=== PATIENT | female | born 1950 | race Caucasian/White ===

== ENCOUNTER → 2024-02-27 08:51 | Outpatient (REF) | payer MEDICARE, OTHER, SELFPAY ==
[2024-02-27 09:55] LABS: Blood Urea Nitrogen 24 mg/dl (7-17); Carbon Dioxide 29 mmol/L (22-30); Chloride 93 mmol/L (98-107); Glucose 133 mg/dl (70-99); Potassium 4.5 mmol/L (3.5-5.1); Sodium 129 mmol/L (135-145); Uric Acid 5.9 mg/dl (2.5-6.2); eGFR 58.75
[2024-02-27 12:56] LABS: Glycohemoglobin (HgbA1c) 6.7 % (4.0-5.6)
== END ==
LOC: REG 08:51
PROVIDERS: ATTENDING PHYSICIAN Internal Medicine
DX: E11.9 Type 2 diabetes mellitus without complications (principal); I10 Essential (primary) hypertension; M1A.0490 Idiopathic chronic gout, unspecified hand, without tophus (tophi)
CPT/HCPCS: 36415; 80048; 83036; 84550

== ENCOUNTER → 2024-09-02 09:06 | Outpatient (REF) | payer MEDICARE, OTHER, SELFPAY ==
[2024-09-02 10:04] LABS: % Basophils 0.2 % (0-2); % Eosinophils 1.8 % (0-6); % Immature Granulocytes 0.4 % (0-0.5); % Lymphocytes 21.3 % (20.5-51.1); % Neutrophils 69.3 % (42.2-75.2); Absolute Eosinophils 0.2 10^3/uL (0-0.7); Absolute Lymphocytes 1.8 10^3/uL (1.2-3.4); Absolute Monocytes 0.6 10^3/uL (0.1-0.6); Absolute Neutrophils 5.8 10^3/uL (1.4-6.5); Hematocrit 38.2 % (37.0-47.0); Hemoglobin 12.9 g/dL (12.0-16.0); Mean Corp Hgb Conc. 33.8 g/dL (33.0-37.0); Mean Corpuscular Hgb 29.3 pg (27.0-31.0); Mean Corpuscular Volume 86.8 fL (81.0-99.0); Mean Platelet Volume 9.5 fL (7.4-10.4); Nucleated Red Blood Cells % 0 %; Platelet Count 268 10^3/uL (130-400); Red Cell Dist. Width 14.6 % (11.5-14.5); White Blood Cell Count 8.3 10^3/uL (4.8-10.8)
[2024-09-02 10:56] LABS: ALT (SGPT) 12 U/L (0-35); AST (SGOT) 19 U/L (14-36); Albumin 4.7 g/dl (3.5-5.0); Alkaline Phosphatase 48 U/L (38-126); Blood Urea Nitrogen 21 mg/dl (7-17); Calcium 10.1 mg/dl (8.4-10.2); Carbon Dioxide 25 mmol/L (22-30); Chloride 94 mmol/L (98-107); Glucose 117 mg/dl (70-99); HDL Cholesterol 35 mg/dl; LDL Cholesterol, Calculated 82 mg/dl; Potassium 4.7 mmol/L (3.5-5.1); Sodium 135 mmol/L (135-145); Total Bilirubin 0.6 mg/dl (0.2-1.3); Total Cholesterol 147 mg/dl (50-199); Total Protein 7.8 g/dl (6.3-8.2); Triglyceride 153 mg/dl (10-149); Very Low Density Lipoprotein 30 mg/dl (0-30); eGFR 58.39
[2024-09-02 11:05] LABS: Microalbumin, Random Urine 0.8 mg/dl (0.6-1.7)
[2024-09-02 11:13] LABS: TSH 2.95 uIU/ml (0.47-4.68)
[2024-09-03 12:01] LABS: Glycohemoglobin (HgbA1c) 6.2 % (4.0-5.6)
== END ==
LOC: REG 09:06
PROVIDERS: ATTENDING PHYSICIAN Internal Medicine
DX: E11.9 Type 2 diabetes mellitus without complications (principal); E03.9 Hypothyroidism, unspecified; E78.5 Hyperlipidemia, unspecified
CPT/HCPCS: 36415; 80053; 80061; 82043; 83036; 84443; 85025

== ENCOUNTER 2024-10-29 17:28 | Emergency (ER) | payer MEDICARE, OTHER, SELFPAY ==
[2024-10-29 17:29] VITALS: BMI 42.0
[2024-10-29 17:30] VITALS: BP 177/100
--- NOTE | 2024-10-29 17:40 | ED.GENMED ---
History of Present Illness
General
Chief Complaint: Fall
Time Seen by Provider: 10/29/24 17:39
Review of Systems
Review of Systems
All Other Systems: ROS reviewed and negative except as documented in HPI and ROS
Course
Orders/Labs/Results
Orders:
Orders
10/29/24 17:37
Complete Blood Count/With Diff Urgent
Comprehensive Metabolic Panel Urgent
Vital Signs
Initial and Last Documented VS:
Initial Vital Signs
Temp Pulse Resp BP Pulse Ox
98.9 F 82 18 177/100 98
10/29/24 17:30 10/29/24 17:30 10/29/24 17:30 10/29/24 17:30 10/29/24 17:30
Last Documented Vital Signs
Temp Pulse Resp BP Pulse Ox
98.9 F 82 18 177/100 98
10/29/24 17:30 10/29/24 17:30 10/29/24 17:30 10/29/24 17:30 10/29/24 17:30
ED Attending Note
-
Portions of this chart may have been created with voice recognition software.� Occasional wrong word or��sound alike� substitutions may have occurred due to the inherent limitations of voice recognition software.
Discharge Plan
Departure
Prescriptions:
No Action
atorvastatin 20 MG tablet
20 mg PO QPM
rivaroxaban [Xarelto] 20 MG tablet
20 mg PO QPM Qty: 30 11RF
sotalol 80 MG tablet
80 mg PO BID Qty: 60 11RF
ranitidine HCl [Zantac] 150 MG tablet
150 mg PO DAILY PRN (Reason: indigestion)
losartan 50 MG tablet
50 mg PO DAILY
cyanocobalamin (vitamin B-12) 1,000 MCG tablet
1,000 mcg PO DAILY
guar gum 1 PKT packet
1 pkt PO DAILY PRN (Reason: as needed)
oxymetazoline [Afrin Sinus (oxymetazoline)] 30 SPRAYS/15 ML spray,non-aerosol
1 sprays intranasal HS
olopatadine [Pataday] 2.5 ML drops
2.5 ml OP DAILY PRN (Reason: burning of eyes)
levothyroxine 100 MCG tablet
100 mcg PO DAILY AT 0700
metformin 1,000 MG tablet
1,000 mg PO BID
ranitidine HCl [Zantac] 150 MG tablet
75 - 150 mg PO QPM PRN (Reason: indigestion)
Interventions
Interventions:
*Risk Screen - Suicide Last Done: 10/29/24 17:30
*General Assessment Last Done: 10/29/24 17:30
*Neglect/Abuse Screening Last Done: 10/29/24 17:30
ED- Fall Risk Assessment Last Done: 10/29/24 17:30
*ED COVID-19 Vaccine History Last Done: 10/29/24 17:30
ED- Neurological Assessment Last Done: 10/29/24 17:39
Discharge Date and Time
Print Language: SRI LANKAN
[2024-10-29] MEDS: ZOFRAN 4 MG IV (17:50)
[2024-10-29] MEDS: MORPHINE SULFATE 4 MG IV (17:50)
[2024-10-29 17:51] LABS: % Basophils 0.2 % (0-2); % Eosinophils 1.6 % (0-6); % Immature Granulocytes 0.5 % (0-0.5); % Lymphocytes 20.8 % (20.5-51.1); % Monocytes 6.7 % (1.7-9.3); % Neutrophils 70.2 % (42.2-75.2); Absolute Eosinophils 0.2 10^3/uL (0-0.7); Absolute Immature Granulocytes 0.1 10^3/uL (0-0.05); Absolute Lymphocytes 2.7 10^3/uL (1.2-3.4); Absolute Monocytes 0.9 10^3/uL (0.1-0.6); Absolute Neutrophils 9.2 10^3/uL (1.4-6.5); Hematocrit 38.9 % (37.0-47.0); Hemoglobin 13.1 g/dL (12.0-16.0); Mean Corp Hgb Conc. 33.7 g/dL (33.0-37.0); Mean Corpuscular Hgb 28.6 pg (27.0-31.0); Mean Corpuscular Volume 84.9 fL (81.0-99.0); Mean Platelet Volume 9.9 fL (7.4-10.4); Nucleated Red Blood Cells % 0 %; Platelet Count 257 10^3/uL (130-400); Red Blood Cell Count 4.58 10^6/uL (4.20-5.40); Red Cell Dist. Width 14.4 % (11.5-14.5); White Blood Cell Count 13.1 10^3/uL (4.8-10.8)
[2024-10-29 18:03] LABS: ALT (SGPT) 16 U/L (0-35); AST (SGOT) 24 U/L (14-36); Albumin 4.6 g/dl (3.5-5.0); Alkaline Phosphatase 71 U/L (38-126); Blood Urea Nitrogen 19 mg/dl (7-17); Calcium 9.5 mg/dl (8.4-10.2); Carbon Dioxide 22 mmol/L (22-30); Chloride 96 mmol/L (98-107); Estimated Creatinine Clearance 69 ml/min; Glucose 179 mg/dl (70-99); Potassium 3.8 mmol/L (3.5-5.1); Sodium 133 mmol/L (135-145); Total Bilirubin 0.4 mg/dl (0.2-1.3); Total Protein 7.7 g/dl (6.3-8.2); eGFR > 60.00
--- NOTE | 2024-10-29 18:08 | ED.GENMED ---
History of Present Illness
General
Chief Complaint: Fall
Time Seen by Provider: 10/29/24 17:39
History of Present Illness
History of Present Illness:
74-year-old female with history of atrial fibrillation on aspirin, diabetes, hypertension presenting after a fall. Patient reports prior to arrival she was walking with her clogs on, missed a step and fell, striking her head and landing on her left
shoulder with subsequent pain. Denies loss of consciousness. Also reports that she was having right knee pain. Denies any prodromal symptoms such as dizziness or lightheadedness. Denies any chest pain or difficulty breathing. Denies abdominal
pain or GI symptoms. Denies numbness or tingling to extremities. Denies additional acute medical complaint
Phy Exam
Physical Exam
Physical Exam:
General: Well-appearing, no clinical signs of dehydration, nontoxic and in no acute distress
HEENT: protecting airway
Head: abrasion to right forehead
Neck: appears supple, no cervical tenderness
CV: Normal heart rate, regular rhythm
Resp: No accessory muscle use, no increased work of breathing, lungs clear to auscultation bilaterally
Abd: Soft and non-distended, no tenderness to palpation
Extremities: No obvious deformity to the left upper extremity with tenderness at the proximal humeral region. Limited range of motion secondary to pain. Range of motion to both knees intact with mild tenderness on palpation of the right knee.
Neuro: alert, no focal neurologic deficit
: deferred
Rectal: deferred
Psych: Normal affect
Skin: Intact
Course
Orders/Labs/Results
Orders:
Orders
10/29/24 17:39
Complete Blood Count/With Diff Urgent
Comprehensive Metabolic Panel Urgent
10/29/24 17:41
CT Head W/o Iv Contrast Urgent
Comment:
Reason For Exam: fall, head strike
CR Shoulder - Left Min 2 View* Urgent
Comment:
Reason For Exam: fall
10/29/24 17:42
Morphine Sulfate 4 mg IV NOW STA
10/29/24 17:45
Ondansetron Injectable [Zofran] 4 mg IV NOW STA
10/29/24 17:46
Ondansetron Injectable [Zofran] 4 mg .ROUTE .STK-MED ONE
10/29/24 18:07
Knee, Right 4 or More Views [CR Knee- Right 4 Or More View*] Urgent
Comment:
Reason For Exam: fall
10/29/24 18:08
Humerus, Left 2 Views [CR Humerus - Left Min 2 Views*] Urgent
Comment:
Reason For Exam: fall, pain
10/29/24 19:37
HYDROmorphone [Dilaudid] 1 mg IV NOW STA
Ketorolac [Toradol] 15 mg IV NOW STA
Abnormal Lab Results
10/29/24
17:39
WBC 13.1 H 10^3/uL
(4.8-10.8)
Abs Immat Gran (auto) 0.1 H 10^3/uL
(0-0.05)
Absolute Neuts (auto) 9.2 H 10^3/uL
(1.4-6.5)
Absolute Monos (auto) 0.9 H 10^3/uL
(0.1-0.6)
Sodium 133 L mmol/L
(135-145)
Chloride 96 L mmol/L
(98-107)
BUN 19 H mg/dl
(7-17)
Glucose 179 H mg/dl
(70-99)
10/29/24 17:39
10/29/24 17:39
Vital Signs
Initial and Last Documented VS:
Initial Vital Signs
Temp Pulse Resp BP Pulse Ox
98.9 F 82 18 177/100 98
10/29/24 17:30 10/29/24 17:30 10/29/24 17:30 10/29/24 17:30 10/29/24 17:30
Last Documented Vital Signs
Temp Pulse Resp BP Pulse Ox
98.9 F 82 18 177/100 98
10/29/24 17:30 10/29/24 17:30 10/29/24 17:30 10/29/24 17:30 10/29/24 17:30
MDM/Problems Addressed
MDM/Problems Addressed:
74-year-old female with history of A-fib on aspirin presenting after a mechanical fall with left upper extremity pain and positive head strike. Vital signs are significant for high blood pressure.
On exam, patient is in no acute distress, awake, alert, oriented with a GCS of 15. Patient has a mild abrasion on the head, otherwise no significant signs of head trauma. Given age, will obtain CT brain imaging. No midline cervical neck
tenderness. Patient also with tenderness to the proximal left humeral region with limited range of motion, suspected fracture. Will obtain x-ray imaging. No present neurovascular compromise. Mild tenderness to the right knee. Will obtain x-ray
imaging. Given discomfort, will administer morphine for pain. Patient denying any prodromal symptoms to her fall, notes that she tripped. Without concern for syncope or near syncope
19:40 -CT brain negative. X-ray of the left upper extremity is consistent with a proximal humeral fracture. X-ray of the knee is unremarkable. Patient is still complaining of pain, will place in a sling and treat with pain medication. Otherwise
feel stable for discharge with outpatient orthopedic follow-up. Return precautions discussed and patient verbalized understanding
*Critical Care Note
Total Time (30-74mins, 75-104mins- exclusive of procedures): Not Applicable
ED Attending Note
-
Portions of this chart may have been created with voice recognition software.� Occasional wrong word or��sound alike� substitutions may have occurred due to the inherent limitations of voice recognition software.
Discharge Plan
Departure
Prescriptions:
No Action
atorvastatin 20 MG tablet
20 mg PO QPM
rivaroxaban [Xarelto] 20 MG tablet
20 mg PO QPM Qty: 30 11RF
sotalol 80 MG tablet
80 mg PO BID Qty: 60 11RF
ranitidine HCl [Zantac] 150 MG tablet
150 mg PO DAILY PRN (Reason: indigestion)
losartan 50 MG tablet
50 mg PO DAILY
cyanocobalamin (vitamin B-12) 1,000 MCG tablet
1,000 mcg PO DAILY
guar gum 1 PKT packet
1 pkt PO DAILY PRN (Reason: as needed)
oxymetazoline [Afrin Sinus (oxymetazoline)] 30 SPRAYS/15 ML spray,non-aerosol
1 sprays intranasal HS
olopatadine [Pataday] 2.5 ML drops
2.5 ml OP DAILY PRN (Reason: burning of eyes)
levothyroxine 100 MCG tablet
100 mcg PO DAILY AT 0700
metformin 1,000 MG tablet
1,000 mg PO BID
ranitidine HCl [Zantac] 150 MG tablet
75 - 150 mg PO QPM PRN (Reason: indigestion)
Referrals:
Shashank Manning MD [Family Provider] -
Interventions
Interventions:
*Risk Screen - Suicide Last Done: 10/29/24 17:30
*General Assessment Last Done: 10/29/24 17:30
*Neglect/Abuse Screening Last Done: 10/29/24 17:30
ED- Fall Risk Assessment Last Done: 10/29/24 17:30
*ED COVID-19 Vaccine History Last Done: 10/29/24 17:30
ED-Musculoskeletal Assessment Last Done: 10/29/24 19:34
ED- Neurological Assessment Last Done: 10/29/24 17:39
ED-Skin Assessment Last Done: 10/29/24 19:34
Discharge Date and Time
Print Language: OCCITAN
[2024-10-29] MEDS: DILAUDID 1 MG IV (19:49)
[2024-10-29] MEDS: TORADOL 15 MG IV (19:49)
[2024-10-29 21:17] VITALS: BP 153/77
== END 2024-10-29 21:18 | disposition home or self-care (01) ==
LOC: EMR 17:28
PROVIDERS: EMERGENCY PHYSICIAN Student in an Organized Health Care Education/Training Program; FAMILY PHYSICIAN Internal Medicine
DX: S42.202A Unspecified fracture of upper end of left humerus, initial encounter for closed fracture (principal); S00.81XA Abrasion of other part of head, initial encounter; W10.9XXA Fall (on) (from) unspecified stairs and steps, initial encounter; I48.91 Unspecified atrial fibrillation; E11.9 Type 2 diabetes mellitus without complications; I10 Essential (primary) hypertension
CPT/HCPCS: 99284; 96374; 96375; 70450; 73030; 73060; 73564; 80053; 85025

== ENCOUNTER → 2024-12-19 08:49 | Outpatient (REF) | payer MEDICARE, OTHER, SELFPAY ==
[2024-12-19 10:08] LABS: Blood Urea Nitrogen 25 mg/dl (7-17); Calcium 9.7 mg/dl (8.4-10.2); Carbon Dioxide 29 mmol/L (22-30); Chloride 98 mmol/L (98-107); Glucose 163 mg/dl (70-99); Potassium 4.4 mmol/L (3.5-5.1); Sodium 136 mmol/L (135-145); eGFR 58.39
[2024-12-19 11:16] LABS: Glycohemoglobin (HgbA1c) 7.6 % (4.0-5.6)
== END ==
LOC: REG 08:49
PROVIDERS: ATTENDING PHYSICIAN Internal Medicine
DX: E11.9 Type 2 diabetes mellitus without complications (principal)
CPT/HCPCS: 36415; 80048; 83036

== ENCOUNTER → 2025-01-30 09:15 | Outpatient (REF) | payer MEDICARE, OTHER, SELFPAY ==
[2025-01-30 09:56] LABS: % Basophils 0.3 % (0-2); % Eosinophils 1.8 % (0-6); % Immature Granulocytes 0.3 % (0-0.5); % Lymphocytes 17.7 % (20.5-51.1); % Monocytes 6.2 % (1.7-9.3); % Neutrophils 73.7 % (42.2-75.2); Absolute Eosinophils 0.2 10^3/uL (0-0.7); Absolute Lymphocytes 2.1 10^3/uL (1.2-3.4); Absolute Monocytes 0.7 10^3/uL (0.1-0.6); Absolute Neutrophils 8.8 10^3/uL (1.4-6.5); Mean Corp Hgb Conc. 32.5 g/dL (33.0-37.0); Mean Corpuscular Hgb 27.7 pg (27.0-31.0); Mean Corpuscular Volume 85.1 fL (81.0-99.0); Mean Platelet Volume 9.3 fL (7.4-10.4); Nucleated Red Blood Cells % 0 %; Platelet Count 292 10^3/uL (130-400); Red Cell Dist. Width 14.6 % (11.5-14.5)
[2025-01-30 10:40] LABS: ALT (SGPT) 11 U/L (0-35); AST (SGOT) 18 U/L (14-36); Albumin 4.8 g/dl (3.5-5.0); Alkaline Phosphatase 76 U/L (38-126); Blood Urea Nitrogen 23 mg/dl (7-17); Carbon Dioxide 27 mmol/L (22-30); Chloride 99 mmol/L (98-107); Glucose 204 mg/dl (70-99); HDL Cholesterol 32 mg/dl; LDL Cholesterol, Calculated 72 mg/dl; Potassium 4.7 mmol/L (3.5-5.1); Sodium 137 mmol/L (135-145); Total Bilirubin 0.7 mg/dl (0.2-1.3); Total Cholesterol 145 mg/dl (50-199); Total Protein 7.7 g/dl (6.3-8.2); Triglyceride 205 mg/dl (10-149); Very Low Density Lipoprotein 41 mg/dl (0-30); eGFR 58.39
[2025-01-30 10:53] LABS: Glycohemoglobin (HgbA1c) 8.4 % (4.0-5.6)
[2025-01-30 11:06] LABS: TSH 3.34 uIU/ml (0.47-4.68)
== END ==
LOC: REG 09:15
PROVIDERS: ATTENDING PHYSICIAN Internal Medicine
DX: I10 Essential (primary) hypertension (principal); E11.9 Type 2 diabetes mellitus without complications; E03.9 Hypothyroidism, unspecified; E87.1 Hypo-osmolality and hyponatremia; E78.5 Hyperlipidemia, unspecified
CPT/HCPCS: 36415; 80053; 80061; 83036; 84443; 85025

== ENCOUNTER → 2025-04-30 09:49 | Outpatient (REF) | payer MEDICARE, OTHER, SELFPAY ==
[2025-04-30 11:18] LABS: ALT (SGPT) < 10 U/L (0-35); AST (SGOT) 17 U/L (14-36); Albumin 4.8 g/dl (3.5-5.0); Alkaline Phosphatase 49 U/L (38-126); Blood Urea Nitrogen 24 mg/dl (7-17); Calcium 10.3 mg/dl (8.4-10.2); Carbon Dioxide 24 mmol/L (22-30); Chloride 102 mmol/L (98-107); Glucose 161 mg/dl (70-99); Potassium 4.9 mmol/L (3.5-5.1); Sodium 136 mmol/L (135-145); Total Protein 8.2 g/dl (6.3-8.2); eGFR 58.39
[2025-04-30 13:02] LABS: Glycohemoglobin (HgbA1c) 7.3 % (4.0-5.6)
== END ==
LOC: REG 09:49
PROVIDERS: ATTENDING PHYSICIAN Internal Medicine
DX: E11.65 Type 2 diabetes mellitus with hyperglycemia (principal)
CPT/HCPCS: 36415; 80053; 83036

== ENCOUNTER → 2025-10-28 15:07 | Outpatient (REF) | payer MEDICARE, OTHER, SELFPAY | LOC: RAD 15:07 | PROVIDERS: ATTENDING PHYSICIAN Hospitalist | DX: N93.9 Abnormal uterine and vaginal bleeding, unspecified (principal) | CPT/HCPCS: 76830; 76856 ==